=== PATIENT | male | born 1935 | race Caucasian/White ===

== ENCOUNTER 2019-10-06 16:05 | Emergency (ER) | payer MEDICARE ==
[2019-10-06 16:12] VITALS: RESP 18; TEMP 98.2
[2019-10-06] MEDS ORDERED: SODIUM CHLORIDE 0.9% 1,000 ML IV STA ×2 (16:14)
--- NOTE | 2019-10-06 16:15 | ED ---
Syncope HPI - General Chief Complaint: Syncope Stated Complaint: Near syncope Source: patient, RN notes reviewed, old records reviewed Mode of arrival: ambulatory Limitations: no limitations - History of Present Illness Initial Comments: This is a 89-year-old male DF for evaluation of a near syncopal event while going to the toilet. Patient has of history of heart disease and CAD no prior episodes of syncope no chest pain shortness with abdominal pain does admit minor drinking today went to sit on the toilet have a bowel movement and felt very sweaty lightheaded and dizzy, patient did not pass out called his daughter came in the house they did call EMS and patient comes emergency department. At this time patient states all symptoms are resolved MD Complaint: felt faint, almost passed out -: minutes(s) Prodromal Symptoms: none -: second(s) Witnessed: yes - by bystander Injuries Sustained Associated with Event: None Current Symptoms: back to baseline Context: after urination (bowel movement) Treatments Prior to Arrival: none - Related Data Allergies Allergy/AdvReac Type Severity Reaction Status Date / Time No Known Allergies Allergy Verified 10/06/19 16:12 Review of Systems ROS Statement: Those systems with pertinent positive or pertinent negative responses have been documented in the HPI. ROS Other: All systems not noted in ROS Statement are negative. Past Medical History Past Medical History: COPD History of Any Multi-Drug Resistant Organisms: None Reported Past Surgical History: Heart Catheterization With Stent Past Psychological History: No Psychological Hx Reported Smoking Status: Former smoker Past Alcohol Use History: Occasional Past Drug Use History: None Reported General Exam Limitations: no limitations General appearance: alert, in no apparent distress Head exam: Present: atraumatic, normocephalic, normal inspection Eye exam: Present: normal appearance, PERRL, EOMI. Absent: scleral icterus, conjunctival injection, periorbital swelling ENT exam: Present: normal exam, mucous membranes moist Neck exam: Present: normal inspection. Absent: tenderness, meningismus, lymphadenopathy Respiratory exam: Present: normal lung sounds bilaterally. Absent: respiratory distress, wheezes, rales, rhonchi, stridor Cardiovascular Exam: Present: regular rate, normal rhythm, normal heart sounds. Absent: systolic murmur, diastolic murmur, rubs, gallop, clicks GI/Abdominal exam: Present: soft, normal bowel sounds. Absent: distended, tenderness, guarding, rebound, rigid Extremities exam: Present: normal inspection, full ROM, normal capillary refill. Absent: tenderness, pedal edema, joint swelling, calf tenderness Back exam: Present: normal inspection Neurological exam: Present: alert, oriented X3, CN II-XII intact Psychiatric exam: Present: normal affect, normal mood Skin exam: Present: warm, dry, intact, normal color. Absent: rash Course Vital Signs 10/06/19 10/06/19 16:08 17:07 Temperature 98.2 F Pulse Rate 73 70 Respiratory 18 18 Rate Blood Pressure 142/78 138/70 O2 Sat by Pulse 96 98 Oximetry - Reevaluation(s) Reevaluation #1: 10/06/19 17:22 Medical record is reviewed Reevaluation #2: 10/06/19 18:36 Patient remains without syncopal event any complaint here in the ER EKG Findings - EKG Comments: EKG Findings:: EKG sinus rhythm 68 ND 282 QRS 134 QTc 506 Medical Decision Making - Medical Decision Making 84 male DF with a near syncopal event occurred voluntarily after having a couple beers and being outside in the hot weather today. No significant distress currently. Patient has no complaints feeling better with IV hydration can be discharged home - Lab Data Result diagrams: 10/06/19 16:21 10/06/19 16:21 Lab Results 10/06/19 10/06/19 10/06/19 Range/Units 16:21 16:21 16:21 WBC 6.0 (3.8-10.6) k/uL RBC 4.42 (4.30-5.90) m/uL Hgb 13.6 (13.0-17.5) gm/dL Hct 41.2 (39.0-53.0) % MCV 93.3 (80.0-100.0) fL MCH 30.7 (25.0-35.0) pg MCHC 32.9 (31.0-37.0) g/dL RDW 12.9 (11.5-15.5) % Plt Count 192 (150-450) k/uL Neutrophils % 76 % Lymphocytes % 13 % Monocytes % 6 % Eosinophils % 2 % Basophils % 0 % Neutrophils # 4.6 (1.3-7.7) k/uL Lymphocytes # 0.8 L (1.0-4.8) k/uL Monocytes # 0.3 (0-1.0) k/uL Eosinophils # 0.1 (0-0.7) k/uL Basophils # 0.0 (0-0.2) k/uL PT 10.2 (9.0-12.0) sec INR 1.0 (<1.2) APTT 21.6 L (22.0-30.0) sec Sodium 137 (137-145) mmol/L Potassium 4.1 (3.5-5.1) mmol/L Chloride 107 (98-107) mmol/L Carbon Dioxide 24 (22-30) mmol/L Anion Gap 6 mmol/L BUN 21 H (9-20) mg/dL Creatinine 0.90 (0.66-1.25) mg/dL Est GFR (CKD-EPI)AfAm 90 (>60 ml/min/1.73 sqM) Est GFR (CKD-EPI)NonAf 78 (>60 ml/min/1.73 sqM) Glucose 121 H (74-99) mg/dL Calcium 9.0 (8.4-10.2) mg/dL Phosphorus 2.7 (2.5-4.5) mg/dL Magnesium 2.1 (1.6-2.3) mg/dL Total Bilirubin 0.7 (0.2-1.3) mg/dL AST 23 (17-59) U/L ALT 16 (4-49) U/L Alkaline Phosphatase 83 (38-126) U/L Creatine Kinase 55 (55-170) U/L Troponin I (0.000-0.034) ng/mL NT-Pro-B Natriuret Pep pg/mL Total Protein 6.2 L (6.3-8.2) g/dL Albumin 3.8 (3.5-5.0) g/dL TSH 1.840 (0.465-4.680) mIU/L Urine Color Urine Appearance (Clear) Urine pH (5.0-8.0) Ur Specific Hope (1.001-1.035) Urine Protein (Negative) Urine Glucose (UA) (Negative) Urine Ketones (Negative) Urine Blood (Negative) Urine Nitrite (Negative) Urine Bilirubin (Negative) Urine Urobilinogen (<2.0) mg/dL Ur Leukocyte Esterase (Negative) 10/06/19 10/06/19 10/06/19 Range/Units 16:21 16:21 18:00 WBC (3.8-10.6) k/uL RBC (4.30-5.90) m/uL Hgb (13.0-17.5) gm/dL Hct (39.0-53.0) % MCV (80.0-100.0) fL MCH (25.0-35.0) pg MCHC (31.0-37.0) g/dL RDW (11.5-15.5) % Plt Count (150-450) k/uL Neutrophils % % Lymphocytes % % Monocytes % % Eosinophils % % Basophils % % Neutrophils # (1.3-7.7) k/uL Lymphocytes # (1.0-4.8) k/uL Monocytes # (0-1.0) k/uL Eosinophils # (0-0.7) k/uL Basophils # (0-0.2) k/uL PT (9.0-12.0) sec INR (<1.2) APTT (22.0-30.0) sec Sodium (137-145) mmol/L Potassium (3.5-5.1) mmol/L Chloride (98-107) mmol/L Carbon Dioxide (22-30) mmol/L Anion Gap mmol/L BUN (9-20) mg/dL Creatinine (0.66-1.25) mg/dL Est GFR (CKD-EPI)AfAm (>60 ml/min/1.73 sqM) Est GFR (CKD-EPI)NonAf (>60 ml/min/1.73 sqM) Glucose (74-99) mg/dL Calcium (8.4-10.2) mg/dL Phosphorus (2.5-4.5) mg/dL Magnesium (1.6-2.3) mg/dL Total Bilirubin (0.2-1.3) mg/dL AST (17-59) U/L ALT (4-49) U/L Alkaline Phosphatase (38-126) U/L Creatine Kinase (55-170) U/L Troponin I <0.012 (0.000-0.034) ng/mL NT-Pro-B Natriuret Pep 190 pg/mL Total Protein (6.3-8.2) g/dL Albumin (3.5-5.0) g/dL TSH (0.465-4.680) mIU/L Urine Color Yellow Urine Appearance Clear (Clear) Urine pH 6.5 (5.0-8.0) Ur Specific Hope 1.017 (1.001-1.035) Urine Protein Negative (Negative) Urine Glucose (UA) Negative (Negative) Urine Ketones Negative (Negative) Urine Blood Negative (Negative) Urine Nitrite Negative (Negative) Urine Bilirubin Negative (Negative) Urine Urobilinogen <2.0 (<2.0) mg/dL Ur Leukocyte Esterase Negative (Negative) Disposition Clinical Impression: Near syncope Disposition: HOME SELF-CARE Condition: Good Instructions (If sedation given, give patient instructions): Near Syncope (ED) Is patient prescribed a controlled substance at d/c from ED?: No Referrals: Martin Kim DO [Primary Care Provider] - 1-2 days
[2019-10-06 16:32] LABS: Basophils % (A) 0 %; Eosinophils # (A) 0.1 k/uL (0-0.7); Eosinophils % (A) 2 %; HCT 41.2 % (39.0-53.0); HGB 13.6 gm/dL (13.0-17.5); Lymphocytes # (A) 0.8 k/uL (1.0-4.8); Lymphocytes % (A) 13 %; MCH 30.7 pg (25.0-35.0); MCHC 32.9 g/dL (31.0-37.0); MCV 93.3 fL (80.0-100.0); Mean Platelet Volume 7.4; Monocytes # (A) 0.3 k/uL (0-1.0); Monocytes % (A) 6 %; Neutrophils # (A) 4.6 k/uL (1.3-7.7); Neutrophils % (A) 76 %; Platelet Count 192 k/uL (150-450); RBC 4.42 m/uL (4.30-5.90); RDW 12.9 % (11.5-15.5)
[2019-10-06 16:37] LABS: Albumin 3.8 g/dL (3.5-5.0); Magnesium 2.1 mg/dL (1.6-2.3); Phosphorus 2.7 mg/dL (2.5-4.5); Potassium 4.1 mmol/L (3.5-5.1); Total Bilirubin 0.7 mg/dL (0.2-1.3); Total Protein 6.2 g/dL (6.3-8.2)
[2019-10-06 17:14] LABS: Prothrombin Time 10.2 sec (9.0-12.0)
[2019-10-06 17:17] LABS: Partial Thromboplastin Time 21.6 sec (22.0-30.0)
[2019-10-06 18:21] LABS: Appearance,Urine Clear (Clear); Bilirubin,Urine Negative (Negative); Blood,Urine Negative (Negative); Color,Urine Yellow; Glucose,Urine (UA) Negative (Negative); Ketones,Urine Negative (Negative); Leukocyte Esterase,Urine Negative (Negative); Nitrite,Urine Negative (Negative); PH, Urine 6.5 (5.0-8.0); Protein,Urine Negative (Negative); Specific Gravity,Urine 1.017 (1.001-1.035); Urobilinogen,Urine <2.0 mg/dL (<2.0)
[2019-10-06 19:18] VITALS: BP 131/65; PULSE 79
== END 2019-10-06 19:16 | disposition home or self-care (01) ==
LOC: EC 16:05
DX: R55 Syncope and collapse (principal); R42 Dizziness and giddiness; Z87.891 Personal history of nicotine dependence; Z95.5 Presence of coronary angioplasty implant and graft
CPT/HCPCS: 36415; 80053; 81003; 82550; 83735; 83880; 84100; 84443; 84484; 85025; 85610; 85730; 93005; 96360; 99285